=== PATIENT | male | born 1970 | race Caucasian/White ===

== ENCOUNTER 2020-09-13 09:16 | Outpatient (CLI) | payer OTHER, SELFPAY ==
--- NOTE | 2020-09-13 09:30 | XR_ITS ---
WS: [id number] KUB, 09/13/2020 Clinical Data: STONES Comparison: CT abdomen and pelvis, 09/12/2020. Findings: No abnormal intraabdominal masses or calcifications are seen. There is no dilatated small bowel or ev idence of obstruction. The right mid ureteral calculus noted on the CT scan is not apparent on this examination. There is fe junior material in the ascending colon obscuring detail over the right kidney. XR/XR KUB [id number] Impression: Negative KUB.
== END 2020-09-13 09:17 | disposition home or self-care (01) ==
PROVIDERS: PCP Urology; Visit Provider Urology
DX: N20.0 Calculus of kidney (principal)
CPT/HCPCS: 74018; 81003; 87635

== ENCOUNTER 2020-09-20 10:14 | Day surgery (SDC) | payer OTHER, SELFPAY ==
[2020-09-17 12:37] VITALS: BMI 45.9
[2020-09-20] VITALS (7 sets, daily range): BP systolic 114–153; BP diastolic 78–108; PULSE 73–89; RESP 14–20; TEMP 36.3–36.6; O2SAT 92–96
--- NOTE | 2020-09-20 10:23 | XRR_ITS ---
PROCEDURE INFORMATION: Exam: XR Abdomen, 1 View Exam date and time: 09/20/2020 10:30 AM Age: 50 years old Clinical indication: Screening exam; Other: Preop right eswl; Patient HX: Abd pain right side, lithotripsy today TECHNIQUE: Imaging protocol: XR of the abdomen. Views: Frontal supine view of the abdomen. 1 View. COMPARISON: CR XR KUB [id number] 09/13/2020 9:35 AM FINDINGS: Gastrointestinal tract: Prominent stool, without bowel dilatation. Bones/joints: Degenerative change and sacroiliac joint sclerosis. Other findings: 10 mm nodular calcification overlying the right paraspinous region at the L3-L4 level, suggesting urolithiasis. XR/XR KUB [id number] IMPRESSION: 10 mm nodular calcification overlying the right paraspinous region at the L3-L4 level, suggesting urolithiasis.
[2020-09-20] MEDS: sodium chloride 0.9% 1,000 ML 30 ML IV (10:44)
[2020-09-20 11:14] LABS: Glucose Point of Care 98 mg/dL (70-110)
--- NOTE | 2020-09-20 11:56 | ANES.PREANE2 ---
Pre-Anesthetic Assessment Pre-Anesthetic Assessment: Height/Weight: Height 1.78 m Weight 145.15 kg Temp Pulse Resp BP Pulse Ox 97.9 F 73 18 153/108 96 09/20/20 11:25 09/20/20 11:25 09/20/20 11:25 09/20/20 11:25 09/20/20 11:25 Preop Diagnosis: Large right ureteral calculus Proposed Procedure: Operation Date: 09/20/20 12:00 Proposed Procedures p Laser Lithotripsy 20055 27791 34606 43033 N20.1(Not Applicable) - MD rafia Angela Cystoscopy(Not Applicable) - MD rafia Angela Retrograde Pyelogram(Right) - MD rafia Angela Ureteroscopy(Not Applicable) - Steven Reddy MD s ESWL(Not Applicable) - Steven Reddy MD Was Beta Mikye taken within 24 hours: N/A Last intake: Intake Last Liquid Date 09/19/20 Last Liquid Time 19:00 Last Solid Date 09/19/20 Last Solid Time 10:00 Social: Social History: No alcohol and No tobacco Exam: Pre-Anes Outpt Exam: alert, oriented x 3, clear to auscultation bilaterally and regular rate & rhythm Airway: Submandibular: WNL Cervical ROM: WNL MP: 2 Dentition: Full Additional comments: Mello Pulmonary: Pulmonary: None reported CV/HEM: CV/HEM: HTN : : None reported Hepatic: Hepatic: None reported GI: GI: None reported Metabolic: Metabolic: DM and Morbid obesity Musc/skel: Musc/skel: None reported Neuropsych: Neuropsych: None reported Anesthetic Plan: ASA status: 3 Anesthesia: General Risk of > 500 ml blood loss (7ml/kg in children): No Meds/Allergies Current Medications: Current Medications Generic Name Dose Route Start Last Admin Trade Name Freq PRN Reason Stop Dose Admin Sodium Chloride 1,000 mls @ 30 ml s/hr 09/20/20 10:30 09/20/20 10:44 Sodium Chloride 0.9% IV 09/21/20 10:29 30 mls/hr .Q24H DONNIE Administration PFSH Anesthesia PFSH: Medical History Hypertension Right ureteral calculus Family History Father Diabetes Mother Diabetes Obesity Social History Smoking and tobacco status: current every day smoker Alcohol intake: current Alcohol intake frequency: holidays/special occasions only Marital status: Current occupational status: employed 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
--- NOTE | 2020-09-20 12:33 | W.PM.OPSUD ---
Surgery/Procedure H&P Update DATE OF PROCEDURE: September 20, 2020 DATE H&P PERFORMED: 09/13/20 H&P UPDATE INFORMATION: I have reviewed H&P completed within last 30 days, I have examined patient prior to procedure, No changes to prior documentation and H&P is in [facility] [place] EMR on date indicated PREOP DIAGNOSIS: Large right ureteral calculus PLANNED PROCEDURE: Operation Date: 09/20/20 12:00 Proposed Procedures p Laser Lithotripsy 63397 57090 41663 31348 N20.1(Not Applicable) - Steven Reddy MD s Cystoscopy(Not Applicable) - MD rafia Angela Retrograde Pyelogram(Right) - MD rafia Angela Ureteroscopy(Not Applicable) - Steven Reddy MD s ESWL(Not Applicable) - Steven Reddy MD
[2020-09-20] MEDS: midazolam 1 mg/mL INJ 2 mL 2 MG IVP (12:35)
[2020-09-20] MEDS: levofloxacin-dextrose 5 % 500 MG/100 ML PREMIX 100 MG IV (12:35)
--- NOTE | 2020-09-20 13:35 | PM.OP ---
Operative Report Date of procedure: September 20, 2020 Pre-op Diagnosis: Large right ureteral calculus Post-op diagnosis: same Procedure Done: 1. 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 Most of the shocks were administered from the anterior position. Condition: stable Disposition: PACU Brief History: Mr. Ruiz is a very pleasant 50-year-old white male recently diagnosed with a large right mid ureteral obstructing stone. Typical symptoms. No evidence of infection. Elected treatment with ESWL and stent based on the size and location of the stone along with obstruction evident on CT scan at diagnosis. Procedure: After routine preoperative evaluation examination and obtaining of informed consent he was taken to the operating suite on 09/20/2020 where general anesthesia was administered without difficulty after appropriate timeout was performed, SCDs confirmed to be functioning, preoperative antibiotics administered, beta-mariana protocol confirmed. Prepped and draped in usual sterile fashion in dorsolithotomy position paying careful attention to avoiding pressure points. 21 Montenegrin cystoscope with 30 degree lens was introduced into the urethra meatus and advanced into the bladder under videoscopy. Bladder was systematically examined with no stone identified. Flexible tip guidewire was easily advanced up the right ureter easily bypassing the stone and curling in the upper pole calyx and a 6 Montenegrin by 30 cm double-pigtail stent was advanced over the guidewire through the cystoscope into appropriate position as confirmed via fluoroscopy and cystoscopy. Shock wave therapy was begun with the shockwave initially positioned posteriorly at a rate of 70 and intensity of 1. It was obvious early on that the positioning was difficult with the shock head and that location and therefore he was switched after a couple 100 shocks to the anterior position for localization was much better. Intensity was advanced to 4 over period of time. Rate was maintained at 70 until excellent change was occurring and then increased to 90. By the completion of the procedure the stone could no longer be identified. Tolerated the procedure well without complications and was awakened in the operating room and returned to the care of room in stable condition. PLANS: 1. Discharge from outpatient surgery is anticipated 2. Follow-up 1 week with KUB and possible cystoscopy with stent removal.
--- NOTE | 2020-09-20 16:05 | ANE.PACU2 ---
Inpatient post-anesthesia follow up: Airway intact: Yes Vital signs: Temperature 97.7 F Pulse Rate 78 Respiratory Rate 16 Blood Pressure 133/88 Pulse Oximetry 93 Oxygen Delivery Me thod Room Air Oxygen Flow Rate 6 Fraction of Inspir ed Oxygen Hydration adequate: Yes Nausea and vomiting: No Pain level: 2 Mental status: Baseline
== END 2020-09-20 14:45 | disposition home or self-care (01) ==
PROVIDERS: PCP Family Medicine; Visit Provider Urology
PROC: 0TJB8ZZ Inspection of Bladder, Via Natural or Artificial Opening Endoscopic (ICD-10-PCS; CPT 52000; 2020-09-20 12:00)
PROC: (CPT 50590; 2020-09-20 12:00)
PROC: (CPT 50605; 2020-09-20 12:00)
DX: N20.1 Calculus of ureter (principal); I10 Essential (primary) hypertension; E11.9 Type 2 diabetes mellitus without complications; E66.01 Morbid (severe) obesity due to excess calories; Z68.42 Body mass index [BMI] 45.0-49.9, adult; F17.210 Nicotine dependence, cigarettes, uncomplicated; Z79.82 Long term (current) use of aspirin; Z79.84 Long term (current) use of oral hypoglycemic drugs
CPT/HCPCS: 52332; 12345; 36416; 74018; 82962; C2625; J1956; J2250; J2405; J2704; J3010; J3490; J7030

== ENCOUNTER 2020-09-29 12:48 | Outpatient (CLI) | payer OTHER, SELFPAY ==
--- NOTE | 2020-09-29 12:52 | XRR_ITS ---
PROCEDURE INFORMATION: Exam: XR Abdomen, 1 View Exam date and time: 09/29/2020 1:16 PM Age: 50 years old Clinical indication: Condition or disease; Kidney or ureter condition; Calculus (stone) in ureter; Prior surgery; Surgery type: Litho, stent; Additional info: Ureteral stone TECHNIQUE: Imaging protocol: XR of the abdomen. Views: Frontal supine view of the abdomen. 1 View. COMPARISON: CR XR KUB [id number] 09/20/2020 10:33 AM FINDINGS: Tubes, catheters and devices: Right double-J catheter. Gastrointestinal tract: Prominent stool . Organs: Prominent stool, partially obscuring the right renal fossa. Vasculature: Punctate calcifications, presumably vascular in etiology. If urolithiasis is of clinical concern, CT may be of benefit for further evaluation. Bones/joints: Mild degenerative change. XR/XR KUB [id number] IMPRESSION: Prominent stool, partially obscuring the right renal fossa.
== END 2020-09-29 12:49 | disposition home or self-care (01) ==
LOC: RAD 12:51
PROVIDERS: PCP Family Medicine; Visit Provider Urology
DX: N20.1 Calculus of ureter (principal)
CPT/HCPCS: 74018; 81003

== ENCOUNTER 2020-10-13 07:19 | Outpatient (CLI) | payer OTHER, SELFPAY ==
--- NOTE | 2020-10-13 07:00 | XR_ITS ---
WS: [id number] KUB, 10/13/2020 Clinical Data: Stone Comparison: KUB, 09/29/2020. Findings: No abnormal intraabdominal masses or calcifications are seen. There is no dilatated small bowel or ev idence of obstruction. There is a right ureteral stent in good position. There is a moderate amount of air in the small [place] l and colon. XR/XR KUB [id number] Impression: 1. No change in right ureteral stent. 2. Mild generalized ileus.
== END 2020-10-13 07:20 | disposition home or self-care (01) ==
PROVIDERS: PCP Family Medicine; Visit Provider Urology
DX: N20.9 Urinary calculus, unspecified (principal); Z96.0 Presence of urogenital implants
CPT/HCPCS: 74018; 81003; 82365; 87635; 88300

== ENCOUNTER 2020-10-18 11:27 | Day surgery (SDC) | payer OTHER, SELFPAY ==
[2020-10-15 17:00] VITALS: BMI 45.9
--- NOTE | 2020-10-18 12:21 | XRR_ITS ---
PROCEDURE INFORMATION: Exam: XR Abdomen, 1 View Exam date and time: 10/18/2020 12:33 PM Age: 50 years old Clinical indication: Screening exam; Other: Pre op; Prior surgery; Surgery type: Kidney stent; Additional info: Preop TECHNIQUE: Imaging protocol: XR of the abdomen. Views: Frontal supine view of the abdomen. 1 View. COMPARISON: CR XR KUB [id number] 10/13/2020 7:28 AM FINDINGS: Gastrointestinal tract: The bowel gas pattern is nonspecific. Air filled large bowel including distal rectal gas. Organs: No calcifications are seen overlying the renal outlines or the expected course of the right or left ureters. No suspicious calcifications within the pelvis. Vasculature: Double-J ureteric stent on the right. Bones/joints: Unremarkable. XR/XR KUB [id number] IMPRESSION: The bowel gas pattern is nonspecific. Air filled large bowel including distal rectal gas.
--- NOTE | 2020-10-18 12:50 | ANES.PREANE2 ---
Pre-Anesthetic Assessment Pre-Anesthetic Assessment: Height/Weight: Height 1.78 m Weight 145.15 kg Preop Diagnosis: Residual right proximal ureteral stone fragment Proposed Procedure: Operation Date: 10/18/20 13:05 Proposed Procedures p ESWL 58729 89631 N20.1(Not Applicable) - MD rafia Angela Cystoscopy(Right) - MD rafia Angela Ureteral Stent Removal(Not Applicable) - Steven Reddy MD Familial anesthetic complications: nONe Was Beta Mikey taken within 24 hours: N/A Last intake: Intake black coffe at 0730 Last Liquid Date 10/18/20 Last Liquid Time 07:30 Last Solid Date 10/15/20 Last Solid Time 21:30 Social: Social History: Tobacco and No alcohol Exam: Pre-Anes Outpt Exam: alert, oriented x 3, clear to auscultation bilaterally and regular rate & rhythm Airway: Cervical ROM: WNL MP: 4 Dentition: Other (missing teeth) CV/HEM: CV/HEM: HTN Metabolic: Metabolic: DM and Morbid obesity Anesthetic Plan: ASA status: 3 Anesthesia: General Risk of > 500 ml blood loss (7ml/kg in children): No PFSH Anesthesia PFSH: Medical History Hypertension Right ureteral calculus Surgical History History of lithotripsy S/P ureteral stent placement Family History Father Diabetes Mother Diabetes Obesity Social History Smoking and tobacco status: current every day smoker Alcohol intake: current Alcohol intake frequency: holidays/special occasions only Marital status: Current occupational status: employed 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
[2020-10-18 12:51] VITALS: BP 152/99; PULSE 92; RESP 18; TEMP 37; O2SAT 94
[2020-10-18 12:51] LABS: Glucose Point of Care 87 mg/dL (70-110)
[2020-10-18] MEDS: sodium chloride 0.9% 1,000 ML 30 ML IV (12:56)
[2020-10-18] MEDS: levofloxacin-dextrose 5 % 500 MG/100 ML PREMIX 100 MG IV (13:50)
[2020-10-18] MEDS: iohexol 300 mg/mL 50 mL Btl (OR ONLY) XX (14:08)
[2020-10-18 14:16] VITALS: BP 149/97; PULSE 108; RESP 18; TEMP 36.4; O2SAT 93
--- NOTE | 2020-10-18 14:19 | P.OP_ITS ---
Operative Report Date of procedure: October 18, 2020 Pre-op Diagnosis: Residual right proximal ureteral stone fragment Post-op Diagnosis: Spontaneously passed residual right proximal ureteral stone fragment Procedure Done: 1. Fluoroscopic examination of the right ureteral stent 2. Cystoscopy, removal of right ureteral stent 3. Right retrograde ureteropyelogram Implants: None Pathology: none sent Surgeon: Maureen Anesthesia: MAC Estimated blood loss: None Urine output: Not measured Complications: None Findings: 1. Intraoperative findings match the KUB. No significant stone fragment remained on fluoroscopic monitoring or retrograde ureteropyelogram. Stent removed without difficulty. Condition: stable Disposition: PACU Brief History: Demarcus is a very pleasant 50-year-old white male with a recently diagnosed symptomatic large UPJ stone on the right which was treated with stent placement and ESWL. On 2 subsequent follow-ups postoperatively there appeared to be a residual fragment just above L4 level on the right side. Ultimately he elected repeat ESWL as opposed to taking the stent out in the office. He was admitted today for repeat ESWL and hopefully stent removal. The preoperative KUB failed to show as clearly the stone and for that reason it was decided to modify the procedure somewhat and do fluoroscopy with him awake on the table and if the stone cannot readily be identified under MAC anesthesia remove the stent. Procedure: After routine preoperative evaluation examination and obtaining of informed consent he was taken to the operating suite on where general anesthesia was administered without difficulty after appropriate timeout was performed, SCDs confirmed to be functioning, preoperative antibiotics administered, beta-mariana protocol confirmed. Positioned on the Dornier unit in supine position paying careful attention to avoiding pressure points. Fluoroscopy was then performed up and down the right ureteral stent from the kidney to the pelvis. No clear identification could be made of the stone fragment previously seen but not clearly seen today. This included oblique views etc. Ultimately was decided to proceed with stent removal. Prepped and draped in usual sterile fashion in dorsal lithotomy position paying careful attention to avoiding pressure points. 21 Icelandic cystoscope with 30 degree lens was introduced into the urethral meatus and advanced into the bladder under videoscopy. A flexible tip guidewire was advanced up along the stent and was monitored under fluoroscopy it was it was passed. No obvious points of retention or obstruction were encountered and the stent easily passed into the renal pelvis area. Grasping forceps were then utilized to remove the stent which went easily. No excessive tension etc. RIGHT RETROGRADE URETEROPYELOGRAM The guidewire was removed and an 8 Icelandic cone-tipped catheter was intubated to the right ureteral orifice for right retrograde ureteropyelogram which showed normal course and caliber of the ureter with no evidence of residual fragments. The ureter peristalsis normally with no filling defects. The bladder was drained and the procedure was completed. He tolerated procedure well without complications and was awakened in the operating room and returned to the recovery in stable condition.
[2020-10-18 14:46] VITALS: BP 142/107; PULSE 88; RESP 18; O2SAT 94
--- NOTE | 2020-10-18 15:44 | ANE.PACU2 ---
Inpatient post-anesthesia follow up: Airway intact: Yes Vital signs: Temperature 97.6 F Pulse Rate 88 Respiratory Rate 18 Blood Pressure 142/107 Pulse Oximetry 94 Oxygen Delivery Me thod Room Air Oxygen Flow Rate Fraction of Inspir ed Oxygen Hydration adequate: Yes Nausea and vomiting: No Pain level: 2 Mental status: Baseline
--- NOTE | 2020-11-02 12:44 | W.PM.OPSUD ---
Surgery/Procedure H&P Update DATE OF PROCEDURE: October 18, 2020 DATE H&P PERFORMED: 10/13/20 H&P UPDATE INFORMATION: I have reviewed H&P completed within last 30 days, I have examined patient prior to procedure and No changes to prior documentation PREOP DIAGNOSIS: Residual right proximal ureteral stone fragment PLANNED PROCEDURE: Operation Date: 10/18/20 13:05 Proposed Procedures p ESWL 11617 06079 N20.1(Not Applicable) - Steven Reddy MD s Cystoscopy(Right) - Steven Reddy MD s Ureteral Stent Removal(Not Applicable) - Steven Reddy MD
== END 2020-10-18 14:53 | disposition home or self-care (01) ==
PROVIDERS: PCP Family Medicine; Visit Provider Urology
PROC: 0TJB8ZZ Inspection of Bladder, Via Natural or Artificial Opening Endoscopic (ICD-10-PCS; CPT 52000; 2020-10-18 13:05)
PROC: (CPT 52310; 2020-10-18 13:05)
PROC: (CPT 74420; 2020-10-18 13:05)
DX: N20.1 Calculus of ureter (principal); Z79.82 Long term (current) use of aspirin; I10 Essential (primary) hypertension; F17.210 Nicotine dependence, cigarettes, uncomplicated; E11.9 Type 2 diabetes mellitus without complications; E66.01 Morbid (severe) obesity due to excess calories; Z68.42 Body mass index [BMI] 45.0-49.9, adult
CPT/HCPCS: 52310; 12345; 36416; 74018; 82962; J1956; J2704; J3010; J7030

== ENCOUNTER 2021-01-17 10:14 | Outpatient (CLI) | payer OTHER, SELFPAY ==
--- NOTE | 2021-01-17 10:20 | XRR_ITS ---
PROCEDURE INFORMATION: Exam: XR Abdomen Exam date and time: 01/17/2021 10:43 AM Age: 50 years old Clinical indication: Condition or disease; Kidney or ureter condition; Calculus (stone) in ureter; Patient HX: 3 month follow up; Additional info: N20.1 - calculus of ureter TECHNIQUE: Imaging protocol: XR of the abdomen. Views: Frontal supine view of the abdomen. 1 View. COMPARISON: CR XR KUB [id number] 10/18/2020 12:31 PM FINDINGS: Tubes, catheters and devices: Interval removal of the right double-J stent. Gastrointestinal tract: No dilated gas-filled loops of bowel. Organs: No radiopaque renal or ureteral calculus identified. Bones/joints: Multilevel disc degeneration in the lumbar spine. XR/XR KUB [id number] IMPRESSION: No radiopaque calculus identified.
== END 2021-01-17 10:15 | disposition home or self-care (01) ==
LOC: RAD 10:18
PROVIDERS: PCP Family Medicine; Visit Provider Urology
DX: N20.1 Calculus of ureter (principal)
CPT/HCPCS: 74018; 81003

== ENCOUNTER → 2022-11-06 09:50 | Day surgery (SDC) | payer OTHER, SELFPAY ==
[2022-11-06] VITALS (8 sets, daily range): BP systolic 134–151; BP diastolic 93–99; PULSE 82–98; RESP 13–18; TEMP 36.3–36.8; O2SAT 93–97; BMI 41.8
--- NOTE | 2022-11-06 10:21 | W.PM.OPSUD ---
Surgery/Procedure H&P Update DATE OF PROCEDURE: November 06, 2022 DATE H&P PERFORMED: 10/24/22 PREOP DIAGNOSIS: Necrotizing fasciitis PLANNED PROCEDURE: Operation Date: 11/06/22 12:05 Proposed Procedures p split thickness skin graft to right upper extremity 22760 27954,M72.6(Right) - Wei Iqbal DO
[2022-11-06] MEDS: sodium chloride 0.9% 1,000 ML 30 ML IV (10:41)
[2022-11-06 10:50] LABS: Glucose Point of Care 104 mg/dL (70-110)
--- NOTE | 2022-11-06 10:55 | ANES.PREANE2 ---
Pre-Anesthetic Assessment Height/Weight: Height 1.8 m Weight 136.078 kg Temp Pulse Resp BP Pulse Ox O2 Del Method 98.2 F 83 18 134/94 97 11/06/22 10:39 11/06/22 10:39 11/06/22 10:39 11/06/22 10:39 11/06/22 10:39 11/06/22 10:39 Preop Diagnosis: Necrotizing fasciitis Operation Date: 11/06/22 12:05 Proposed Procedures p split thickness skin graft to right upper extremity 27769 09586,M72.6(Right) - Wei Iqbal DO Familial anesthetic complications: None Was Beta Mikey taken within 24 hours: N/A Was Clonidine taken within 24 hours: N/A Last intake: Intake Last Liquid Date 11/05/22 Last Liquid Time 20:00 Last Solid Date 11/05/22 Last Solid Time 20:00 Social Tobacco and No alcohol Exam alert, oriented x 3, clear to auscultation bilaterally and regular rate & rhythm Airway Mallampati: Class IV Dentition: other (missing) CV/HEM Hypertension Metabolic Diabetes Mellitus and Morbid Obesity Anesthetic Plan ASA status: 3 Anesthesia: General Risk of > 500 ml blood loss (7ml/kg in children): No Medications/Allergies Home Medications Medication Instructions Recorded Confirmed Last Taken Type aspirin 81 mg tablet,delayed 81 mg PO DAILY 09/13/20 11/06/22 11/05/22 History release lisinopril 5 mg tablet 5 mg PO DAILY 09/13/20 11/06/22 11/05/22 History lorazepam 1 mg tablet 1 mg PO TID PRN Anxiety 09/13/20 11/06/22 11/05/22 History metformin 500 mg tablet 500 mg PO DAILY 09/13/20 11/06/22 11/05/22 History vortioxetine 10 mg tablet 10 mg PO DAILY 09/13/20 11/06/22 11/05/22 History (Trintellix) multivitamin 1 tab PO DAILY 01/17/21 11/06/22 11/05/22 History testosterone cypionate 200 mg/mL 200 mg IM DIRECTED 05/03/22 11/06/22 09/02/22 History intramuscular oil levofloxacin 500 mg tablet 500 mg PO DAILY 14 days #14 tabs 10/24/22 11/06/22 11/06/22 Rx Allergies Allergy/AdvReac Type Severity Reaction Status Date / Time ampicillin Allergy Unknown unknown Verified 11/06/22 10:33 Current Medications Generic Name Dose Route Start Last Admin Trade Name Freq PRN Reason Stop Dose Admin Sodium Chloride 1,000 mls @ 30 mls/hr 11/06/22 10:00 11/06/22 10:41 Sodium Chloride 0.9% IV 11/07/22 09:59 30 mls/hr .Q24H DONNIE Administration PFSH Anesthesia Medical History Hypertension Right ureteral calculus Surgical History History of lithotripsy S/P ureteral stent placement Family History Father Diabetes Mother Diabetes Obesity Social History Smoking and tobacco status: current every day smoker Alcohol intake: current Alcohol intake frequency: holidays/special occasions only Marital status: Current occupational status: employed 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
[2022-11-06] MEDS: mineral oil 30 mL UDC XX (15:50)
--- NOTE | 2022-11-06 16:34 | PM.OP ---
Operative Report Date of procedure: November 06, 2022 Pre-op diagnosis: Preop Diagnosis history of necrotizing fasciitis Post-op diagnosis: same Procedure done: Split thickness skin graft to right upper extremity from left thigh Implants: None Specimens removed/disposition: None Surgeon: Dr. Wei Iqbal DO Anesthesia: General Estimated blood loss (mL): 10 Complications: None apparent Brief History: This is a pleasant 52-year-old gentleman who had a history of necrotizing fasciitis and fasciotomies of the right upper extremity. He has been going to wound care and using a wound graft. The site is ready for skin grafting. The risks and benefits of a split-thickness skin graft to the right upper extremity were explained and documented. Procedure: The patient was taken to the OR room and placed on the OR table in supine position. General tracheal intubation was achieved by department anesthesia. A timeout was performed all present were in agreement. The was prepped and draped in usual sterile fashion. The left anterior and lateral thigh was prepped with alcohol and draped in usual sterile fashion. A dermatome set at 0.15 mm was used to harvest donor skin from the left anterior lateral thigh. The tissue was then put through the mesher. The donor graft was then placed over the wounds of the right upper extremity and cut to size. They were held in place with lokesh. The entirety of the wounds were covered for a total area of approximately 130 cm. Xeroform was placed over the the operative sites followed by Tegaderm, 4 x 4's, Kerlix and Gerald bandage. Patient tolerated the procedure well.
[2022-11-06] MEDS: HYDROcodone-acetaminophen 7.5-325 mg Tablet 1 TAB PO (17:48)
--- NOTE | 2022-11-06 17:53 | ANE.PACU2 ---
Inpatient post-anesthesia follow up: Airway intact: Yes Vital signs: Temperature 97.4 F Pulse Rate 82 Respiratory Rate 17 Blood Pressure 143/97 Pulse Oximetry 93 Oxygen Delivery Me thod Room Air Oxygen Flow Rate 6 Fraction of Inspir ed Oxygen Hydration adequate: Yes Nausea and vomiting: No Pain level: 1 Mental status: Baseline
--- NOTE | 2022-11-06 18:12 | SUR.PHASEII ---
1809-Dressing to left thigh was off on both sides and top. Dressing was reinforced with medipore tape and large kalpesh wrap.
== END | disposition home or self-care (01) ==
PROVIDERS: PCP Family Medicine; Visit Provider Surgery
PROC: (CPT 15002; principal; 2022-11-06 11:55)
DX: M72.6 Necrotizing fasciitis (principal); I10 Essential (primary) hypertension; E11.9 Type 2 diabetes mellitus without complications; E66.01 Morbid (severe) obesity due to excess calories; Z68.41 Body mass index [BMI] 40.0-44.9, adult; Z79.82 Long term (current) use of aspirin; Z79.84 Long term (current) use of oral hypoglycemic drugs; F17.200 Nicotine dependence, unspecified, uncomplicated
CPT/HCPCS: 15002; 15100; 36416; 82962; J1100; J1885; J2370; J2405; J2704; J2710; J3010; J3370; J3490; J7030; J7040